=== PATIENT | male | born 1970 | race African-American/Black ===

== ENCOUNTER 2018-01-17 21:21 | Emergency (ER) | payer OTHER ==
[~2018-01-17] VITALS: Ht 180.3 cm; Wt 129.3 kg
[~2018-01-17 21:21] MED LIST: AMOXICILLIN500 M1 PO; FLEXERIL PO; IBUPROFEN 800800 M1 PO; IBUPROFEN 800800 MG PO; NORCO 5-325 TA1 EACH PO; TRAMADOL 50 MG50 MG PO; ULTRAM 50MG TAB50 MG PO
[2018-01-17] MEDS ORDERED: ULTRAM 50MG TAB50 MG PO (22:41)
[2018-01-17] MEDS ORDERED: FLEXERIL PO (22:41)
[2018-01-17 22:49] VITALS: BP 131/92
== END 2018-01-17 22:49 | disposition home or self-care (01) ==
LOC: M.ERS 21:21
DX: S39.012A Strain of muscle, fascia and tendon of lower back, initial encounter (principal); M54.6 Pain in thoracic spine; F17.210 Nicotine dependence, cigarettes, uncomplicated; V89.2XXA Person injured in unspecified motor-vehicle accident, traffic, initial encounter; Y93.89 Activity, other specified; Y92.89 Other specified places as the place of occurrence of the external cause; Y99.8 Other external cause status

== ENCOUNTER 2019-06-26 17:36 | Emergency (ER) | payer OTHER ==
[~2019-06-26] VITALS: Ht 180.3 cm; Wt 120.2 kg
[2019-06-26] MEDS ORDERED: ASPIR 8181 MG PO (17:43)
[2019-06-26] MEDS ORDERED: PREDNISONE 10 M10 MG PO (18:33)
[2019-06-26] MEDS ORDERED: ZPAK PO (18:33)
[2019-06-26 18:42] VITALS: BP 150/79
[2019-06-29] MEDS ORDERED: ASPERCREME1 EACH TRANSDERM (18:18)
[2019-06-29] MEDS ORDERED: MOBIC7.5 MG PO (18:18)
[2019-06-29] MEDS ORDERED: CYCLOBENZAPRINE5 MG PO (18:18)
== END 2019-06-26 18:45 | disposition home or self-care (01) ==
LOC: M.ERS 17:36
DX: J06.9 Acute upper respiratory infection, unspecified (principal); R06.02 Shortness of breath; R09.89 Other specified symptoms and signs involving the circulatory and respiratory systems; F17.210 Nicotine dependence, cigarettes, uncomplicated; Z79.82 Long term (current) use of aspirin